=== PATIENT | male | born 1995 | race Two or more races ===

== ENCOUNTER 2017-01-25 18:34 | Emergency (ER) | payer MEDICAID ==
[~2017-01-25] VITALS: Ht 170.2 cm; Wt 83.9 kg
[2017-01-25] MEDS ORDERED: IBUPROFEN 800 MG TAB PO ONE (22:45)
[2017-01-25 23:03] VITALS: BP 132/78
== END 2017-01-25 23:19 | disposition home or self-care (01) ==
LOC: ER 18:34 → EDBD 18:34 → ER 23:19
DX: M79.604 Pain in right leg (principal); V43.52XA Car driver injured in collision with other type car in traffic accident, initial encounter; Y93.89 Activity, other specified; Y92.488 Other paved roadways as the place of occurrence of the external cause; Y99.8 Other external cause status

== ENCOUNTER 2017-02-25 15:23 | Emergency (ER) | payer MEDICAID, OTHER ==
[~2017-02-25] VITALS: Ht 170.2 cm; Wt 83.9 kg
[2017-02-25 15:49] VITALS: BP 137/89
[2017-02-25] MEDS ORDERED: BACITRACIN TOP OINT 1 UD PKG TOP ONE (20:00)
[2017-02-25] MEDS ORDERED: LIDOCAINE 1% HCL (LOCAL ANESTH.) INJ 20ML MDV IJ ONE (20:00)
== END 2017-02-25 21:26 | disposition home or self-care (01) ==
LOC: ER 15:23
DX: S61.210A Laceration without foreign body of right index finger without damage to nail, initial encounter (principal); W18.09XA Striking against other object with subsequent fall, initial encounter; Y93.89 Activity, other specified; Y92.89 Other specified places as the place of occurrence of the external cause; Y99.8 Other external cause status
CPT/HCPCS: 12001; 99283; J2001

== ENCOUNTER 2018-05-19 09:40 | Emergency (ER) | payer MEDICAID, OTHER ==
[~2018-05-19] VITALS: Ht 170.2 cm; Wt 97.5 kg
[2018-05-19 09:55] VITALS: BP 138/76
[2018-05-19] MEDS ORDERED: cefTRIAXone SOD 1,000 MG VL IM ONE (10:15)
[2018-05-19] MEDS ORDERED: LIDOCAINE 1% HCL (LOCAL ANESTH.) INJ 20ML MDV IJ ONE (10:30)
== END 2018-05-19 10:46 | disposition home or self-care (01) ==
LOC: ER 09:40
DX: J03.90 Acute tonsillitis, unspecified (principal)
CPT/HCPCS: 96372; 99283; J0696